=== PATIENT | male | born 1980 | race Hispanic/Latino ===

== ENCOUNTER 2018-06-04 02:36 | Observation (INO) | payer MEDICAID, OTHER ==
[2018-06-04] MEDS ORDERED: Sodium Chloride 0.9% 1,000 ML IV STA ×2 (03:00→05:48)
--- NOTE | 2018-06-04 03:03 | ED PDOC ---
Arrival/HPI - General Chief Complaint: Back Pain Time Seen by Provider: 06/04/18 02:55 Historian: Patient - History of Present Illness Narrative History of Present Illness (Text): 06/04/18 03:00 Errol Cannon is a 38 year old male, whose past medical history includes nephrolithiasis, who presents to the ED complaining of right flank pain tonight. Patient notes symptoms are similar in quality to previous episodes of kidney stones. Patient denies any fever, chills, chest pain, shortness of breath, nausea, vomiting, diarrhea, urinary symptoms, neck pain, headache, dizziness, or any other complaints. Symptom Onset: Gradual Symptom Course: Unchanged Activities at Onset: Light Context: Home Past Medical History - Provider Review Nursing Documentation Reviewed: Yes - Infectious Disease Hx of Infectious Diseases: None - Cardiac Hx Cardiac Disorders: No - Pulmonary Hx Respiratory Disorders: No - Renal Hx Kidney Stones: Yes - Psychiatric Hx Substance Use: Yes (marijuana) Family/Social History - Physician Review Nursing Documentation Reviewed: Yes Family/Social History: Unknown Family HX Smoking Status: Heavy Smoker > 10 Cigarettes Daily Hx Alcohol Use: Yes Frequency of alcohol use: Socially Hx Substance Use: Yes (marijuana) Allergies/Home Meds Allergies/Adverse Reactions: Allergies No Known Allergies Allergy (Verified 06/04/18 02:42) Home Medications: Home Meds Medication Instructions Recorded Confirmed No Known Home Med 06/04/18 06/04/18 Review of Systems - Physician Review All systems were reviewed & negative as marked: Yes - Review of Systems Constitutional: Normal. absent: Fevers Eyes: Normal ENT: Normal Respiratory: Normal. absent: SOB, Cough Cardiovascular: Normal. absent: Chest Pain Gastrointestinal: Normal. absent: Abdominal Pain, Diarrhea, Nausea, Vomiting Genitourinary Male: Normal. absent: Dysuria, Hematuria, Urinary Output Changes Musculoskeletal: Back Pain. absent: Neck Pain Skin: Normal. absent: Rash Neurological: Normal. absent: Headache, Dizziness Endocrine: Normal Hemo/Lymphatic: Normal Psychiatric: Normal Physical Exam Vital Signs Reviewed: Yes Vital Signs Temp Pulse Resp BP Pulse Ox 06/04/18 02:42 98.1 F 88 18 101/70 98 Temperature: Afebrile Blood Pressure: Normal Pulse: Regular Respiratory Rate: Normal Appearance: Positive for: Well-Appearing, Non-Toxic, Comfortable Pain Distress: None Mental Status: Positive for: Alert and Oriented X 3 - Systems Exam Head: Present: Atraumatic, Normocephalic Pupils: Present: PERRL Extroacular Muscles: Present: EOMI Conjunctiva: Present: Normal Mouth: Present: Moist Mucous Membranes Neck: Present: Normal Range of Motion Respiratory/Chest: Present: Clear to Auscultation, Good Air Exchange. No: Respiratory Distress, Accessory Muscle Use Cardiovascular: Present: Regular Rate and Rhythm, Normal S1, S2. No: Murmurs Abdomen: No: Tenderness, Distention, Peritoneal Signs Back: Present: Normal Inspection Upper Extremity: Present: Normal Inspection. No: Cyanosis, Edema Lower Extremity: Present: Normal Inspection. No: Edema Neurological: Present: GCS=15, CN II-XII Intact, Speech Normal Skin: Present: Warm, Dry, Normal Color. No: Rashes Psychiatric: Present: Alert, Oriented x 3, Normal Insight, Normal Concentration Medical Decision Making ED Course and Treatment: 06/04/18 03:00 Impression: 38 year old male complaining of right flank pain tonight. Plan: -- CT Abdomen and Pelvis -- Labs -- Urinalysis -- IV fluids -- Zofran -- Toradol -- Reassess and disposition Progress Notes: 06/04/18 04:42 CT Abdomen and Pelvis: Normal unenhanced liver. Normal gallbladder and extrahepatic biliary system. Normal unenhanced spleen. Normal pancreas. Normal bilateral adrenal glands. Normal size of the right kidney. There is no right renal mass. There are no right renal calculi. 4.7 mm obstructing stone of the left ureter at the L5 level. Mild right hydroureter nephrosis. Normal size of the left kidney. There is no left renal mass. There are no left renal calculi. There is no left hydronephrosis. Normal visualized left ureter. Normal visualized stomach. Normal small intestine. Moderate amount of fecal residue in the colon. The appendix is visualized and appears normal. There is no demonstrated peritoneal fluid. Normal abdominal aorta. Normal inferior vena cava. Normal retroperitoneum. Normal urinary bladder. There is no pelvic mass lesion or lymphadenopathy. There is no pelvic fluid. Normal abdominal wall. Normal osseous structures. IMPRESSION: Obstructing stone of the right ureter at L5. Constipation. Electronically signed on Jun 04, 2018 4:34:55 AM EDT by: Jose Alfredo Rivera M.D., Certified by ABNER, MSK, Neuroradiology 06/04/18 04:46 Case discussed with biomedical repair technician road design draftsperson, who is aware and agrees with plan. 06/04/18 05:[address] Cartagena, who is aware and agrees with plan. Accepts pt in to hospitalist service. Pt will go to [facility] observation for renal colic. - Lab Interpretations I have reviewed the lab results: Yes - RAD Interpretation Sales Architect: Radiologist - Scribe Statement The provider has reviewed the documentation as recorded by the Carlosiblopez Swift Provider Scribe Attestation: All medical record entries made by the Scribe were at my direction and personally dictated by me. I have reviewed the chart and agree that the record accurately reflects my personal performance of the history, physical exam, medical decision making, and the department course for this patient. I have also personally directed, reviewed, and agree with the discharge instructions and disposition. Disposition/Present on Arrival - Present on Arrival History of DVT/PE: No History of Uncontrolled Diabetes: No Urinary Catheter: No History of Decub. Ulcer: No History Surgical Site Infection Following: None - Disposition Forms: [email or web address] (Pashto)
[2018-06-04 03:23] LABS: BASO # 0.03 K/mm3 (0.0-2.0); BASO % 0.3 % (0.0-3.0); EOS # 0.1 (0.0-0.7); EOS % 0.8 % (1.5-5.0); LYMPH # 2.8 (1.2-3.4); LYMPH % 27.1 % (22.0-35.0); MEAN CELL VOLUME 84.5 fl (80.0-105.0); MEAN CORPUSCULAR HEMOGLOBIN 28.9 pg (25.0-35.0); MEAN CORPUSCULAR HGB CONC 34.1 g/dl (31.0-37.0); MEAN PLATELET VOLUME 10.1 fl (7.0-11.0); MONO # 0.7 (0.1-0.6); MONO % 6.5 % (1.0-6.0); RBC 4.85 10^6/uL (3.5-6.1); RED CELL DISTRIBUTION WIDTH 13.5 % (11.5-14.5); WHITE BLOOD COUNT 10.4 10^3/uL (4.5-11.0)
[2018-06-04 03:24] LABS: PH,URINE 6.5 (4.7-8.0); URINE BILIRUBIN NEGATIVE (NEGATIVE); URINE BLOOD NEGATIVE (NEGATIVE); URINE GLUCOSE (UA) NEGATIVE (NEGATIVE); URINE LEUKOCYTE ESTERASE TRACE Leu/uL (NEGATIVE); URINE PROTEIN 30 mg/dL (<30 mg/dL)
[2018-06-04 03:25] LABS: URINE APPEARANCE CLEAR (CLEAR); URINE COLOR LIGHT YELLOW (YELLOW)
[2018-06-04 03:28] LABS: URINE RBC 0 - 2 /hpf (0-2)
[2018-06-04 03:33] LABS: ALB/GLOB RATIO 1.5 (1.1-1.8); ALBUMIN 4.3 g/dL (3.0-4.8); ALT/SGPT 12 U/L (7-56); AST/SGOT 28 U/L (17-59); BLOOD UREA NITROGEN 10 mg/dL (7-21); CALCIUM 9.5 mg/dL (8.4-10.5); GFR NON-AFRICAN AMERICAN > 60
[2018-06-04] MEDS ORDERED: Morphine 2 mg/ml ISec IVP STA (03:54)
[2018-06-04 04:50] VITALS: O2SAT 97
--- NOTE | 2018-06-04 05:31 | CP.PCM.HP ---
<AnastacioGuru - Last Filed: 06/04/18 06:00> History of Present Illness - History of Present Illness History of Present Illness: Guru Chaves DO PGY-1 H&P Note for Dr. Mitzi Rush: Right flank pain x6 days 38 y/o male with PMH of nephrolithiasis presents to the ED with right flank pain x6 days. Pain is sharp, 10/10, no radiation, progressive, no radiation, associated with hematuria. Patient denied fever, chills, nausea, vomiting or trauma related to his symptoms. He states he had significant history of nephrolithiasis with subsequent ureteric stent placed 7 years ago. He had stones that passed on their own. Patient denied chest pain, palpitations, cough, headache, dizziness, N/V, 12 points ROS reviewed with pertinent positives as above PMH:nephrolithiasis PSH: ureteric stent 7 years ago Meds: none All: NKDA FH: father, HTN. Mother of cancer SH: smokes 1/2 ppd x15 years. no alcohol or illicit drug use PMD: none Present on Admission - Present on Admission Any Indicators Present on Admission: No Past Patient History - Infectious Disease Hx of Infectious Diseases: None - Past Social History Smoking Status: Heavy Smoker > 10 Cigarettes Daily - CARDIAC Hx Cardiac Disorders: No - PULMONARY Hx Respiratory Disorders: No - RENAL Hx Kidney Stones: Yes - PSYCHIATRIC Hx Substance Use: Yes (marijuana) Meds Allergies/Adverse Reactions: Allergies Allergy/AdvReac Type Severity Reaction Status Date / Time No Known Allergies Allergy Verified 06/04/18 02:42 Physical Exam - Constitutional Appears: Well, Non-toxic - Head Exam Head Exam: ATRAUMATIC, NORMAL INSPECTION, NORMOCEPHALIC - Eye Exam Eye Exam: EOMI, Normal appearance, PERRL Pupil Exam: NORMAL ACCOMODATION, PERRL - ENT Exam ENT Exam: Mucous Membranes Moist, Normal Exam - Neck Exam Neck exam: Positive for: Normal Inspection - Respiratory Exam Respiratory Exam: Clear to Auscultation Bilateral, NORMAL BREATHING PATTERN - Cardiovascular Exam Cardiovascular Exam: REGULAR RHYTHM - GI/Abdominal Exam GI & Abdominal Exam: Normal Bowel Sounds, Soft. absent: Tenderness - Extremities Exam Extremities exam: Positive for: normal capillary refill, normal inspection. Negative for: calf tenderness - Back Exam Back exam: CVA tenderness (R), NORMAL INSPECTION. absent: CVA tenderness (L) - Neurological Exam Neurological exam: Alert, CN II-XII Intact, Normal Gait, Oriented x3, Reflexes Normal - Psychiatric Exam Psychiatric exam: Normal Affect, Normal Mood - Skin Skin Exam: Dry, Intact, Normal Color, Warm Results - Vital Signs Recent Vital Signs: Last Vital Signs Temp 98.1 F 06/04/18 02:42 Pulse 70 06/04/18 04:49 Resp 14 06/04/18 04:49 BP 102/60 06/04/18 04:49 Pulse Ox 97 06/04/18 04:49 - Labs Result Diagrams: 06/04/18 03:06 06/04/18 03:06 Labs: Laboratory Results - last 24 hr 06/04/18 06/04/18 06/04/18 03:06 03:06 03:06 WBC 10.4 RBC 4.85 Hgb 14.0 Hct 41.0 L MCV 84.5 MCH 28.9 MCHC 34.1 RDW 13.5 Plt Count 294 MPV 10.1 Neut % (Auto) 65.3 Lymph % (Auto) 27.1 [place] % (Auto) 6.5 H Eos % (Auto) 0.8 L Baso % (Auto) 0.3 Lymph # (Auto) 2.8 [place] # (Auto) 0.7 H Eos # (Auto) 0.1 Baso # (Auto) 0.03 Absolute Neuts (auto) 6.82 H Sodium 140 Potassium 3.6 Chloride 103 Carbon Dioxide 28 Anion Gap 13 BUN 10 Creatinine 0.8 Est GFR ( Amer) > 60 Est GFR (Non-Af Amer) > 60 Random Glucose 116 H Calcium 9.5 Total Bilirubin 0.5 AST 28 ALT 12 Alkaline Phosphatase 86 Total Protein 7.1 Albumin 4.3 Globulin 2.8 Albumin/Globulin Ratio 1.5 Urine Color Light yellow Urine Appearance Clear Urine pH 6.5 Ur Specific [place] 1.025 Urine Protein 30 H Urine Glucose (UA) Negative Urine Ketones Trace H Urine Blood Negative Urine Nitrate Negative Urine Bilirubin Negative Urine Urobilinogen 1.0 H Ur Leukocyte Esterase Trace H Urine RBC 0 - 2 Urine WBC 2 - 5 Ur Epithelial Cells None Urine Other Mucus Assessment & Plan - Assessment and Plan (Free Text) Assessment: 38 y/o male with PMH of nephrolithiasis presents to the ED with right flank pain x6 days. He is admitted for obstructive right ureteric stone 4.[address] A/P. Afebrile, no leukocytosis. Plan: Obstructive ureteric stone: -CT A/P: 4.7 mm right ureteric stone at level of L5 per prelim read given to ER physician -IVF NS@200 cc/hr -morphine 2mg q4h prn moderate pain and 4mg q4 prn severe -UA: +LE, proteinurea -f/u UCx -started rocephin -urology consulted, Dr Sultana h/o smoking: -nicotine patch PPX: DVT: SCD GI: not indicated HHD Case reviewed and plan discussed with attending Dr Mitzi Chaves, DO PGY1 <Anna Marie Cartagena - Last Filed: 06/04/18 07:19> Results - Vital Signs Recent Vital Signs: Last Vital Signs Temp 98.1 F 06/04/18 02:42 Pulse 70 06/04/18 05:47 Resp 14 06/04/18 05:47 BP 102/60 06/04/18 05:47 Pulse Ox 97 06/04/18 05:47 - Labs Result Diagrams: 06/04/18 03:06 06/04/18 03:06 Labs: Laboratory Results - last 24 hr 06/04/18 06/04/18 06/04/18 03:06 03:06 03:06 WBC 10.4 RBC 4.85 Hgb 14.0 Hct 41.0 L MCV 84.5 MCH 28.9 MCHC 34.1 RDW 13.5 Plt Count 294 MPV 10.1 Neut % (Auto) 65.3 Lymph % (Auto) 27.1 [place] % (Auto) 6.5 H Eos % (Auto) 0.8 L Baso % (Auto) 0.3 Lymph # (Auto) 2.8 [place] # (Auto) 0.7 H Eos # (Auto) 0.1 Baso # (Auto) 0.03 Absolute Neuts (auto) 6.82 H Sodium 140 Potassium 3.6 Chloride 103 Carbon Dioxide 28 Anion Gap 13 BUN 10 Creatinine 0.8 Est GFR ( Amer) > 60 Est GFR (Non-Af Amer) > 60 Random Glucose 116 H Calcium 9.5 Total Bilirubin 0.5 AST 28 ALT 12 Alkaline Phosphatase 86 Total Protein 7.1 Albumin 4.3 Globulin 2.8 Albumin/Globulin Ratio 1.5 Urine Color Light yellow Urine Appearance Clear Urine pH 6.5 Ur Specific [place] 1.025 Urine Protein 30 H Urine Glucose (UA) Negative Urine Ketones Trace H Urine Blood Negative Urine Nitrate Negative Urine Bilirubin Negative Urine Urobilinogen 1.0 H Ur Leukocyte Esterase Trace H Urine RBC 0 - 2 Urine WBC 2 - 5 Ur Epithelial Cells None Urine Other Mucus Attending/Attestation - Attestation I have personally seen and examined this patient.: Yes I have fully participated in the care of the patient.: Yes I have reviewed all pertinent clinical information: Yes Notes (Text): 06/04/18 07:16 Patient evaluated Discussed with resident in detail Agree with documentation,assessment and plan of treatment. 06/04/18 07:18
[2018-06-04] MEDS ORDERED: Morphine 2 mg/ml ISec IVP PRN ×3 (05:56→07:28)
[2018-06-04] MEDS ORDERED: Morphine 4 mg/ml ISec IVP PRN (06:03)
[2018-06-04 08:54] VITALS: BP 127/65; PULSE 66; RESP 18; TEMP 97.9
--- NOTE | 2018-06-04 09:34 | CT ---
PROCEDURE: CT Abdomen and Pelvis without Oral or IV contrast. HISTORY: rt flank pain COMPARISON: None available. TECHNIQUE: Contiguous axial images of the abdomen and pelvis. No oral or IV contrast administered. Coronal and Sagittal reformats generated and reviewed. Radiation dose: Total exam DLP = 277.58 mGy-cm. This CT exam was performed using one or more of the following dose reduction techniques: Automated exposure control, adjustment of the mA and/or kV according to patient size, and/or use of iterative reconstruction technique. FINDINGS: There is limited evaluation of the solid organs without the administration of IV contrast. LOWER THORAX: No visible consolidation, pleural effusion, or pneumothorax. LIVER: Unremarkable unenhanced appearance. GALLBLADDER AND BILE DUCTS: Unremarkable unenhanced appearance. PANCREAS: Unremarkable unenhanced appearance. SPLEEN: Unremarkable unenhanced appearance. ADRENALS: Unremarkable unenhanced appearance. KIDNEYS AND URETERS: 4 mm obstructing calculus within the ureter (series 3, image 79); mild proximal hydroureter and hydronephrosis. No left-sided obstructing calculus or hydronephrosis identified. BLADDER: Under distension limits evaluation. REPRODUCTIVE: Unremarkable. APPENDIX: The appendix appears within normal limits of caliber. No secondary signs of acute appendicitis. BOWEL: The stomach is nondistended. Lack of oral contrast limits evaluation for bowel pathology. The bowel loops appear within normal limits of caliber without evidence of intestinal obstruction. Moderate diffuse constipation. PERITONEUM: No significant free fluid. No definite free air. LYMPH NODES: No bulky lymphadenopathy identified. VASCULATURE: Scattered atherosclerotic calcifications of the aorta. No aortic aneurysm. BONES: No acute osseous abnormality is detected. OTHER FINDINGS: None. IMPRESSION: 4 mm obstructing calculus within the right ureter with resultant mild proximal hydroureter and hydronephrosis. Moderate constipation. Scattered atherosclerotic calcifications of the aorta. Preliminary impression was provided by [employer]
[2018-06-04] MEDS ORDERED: cefTRIAXone 1 gm 1 GM/100 ML BAG IVPB SCH (10:00)
--- NOTE | 2018-06-04 15:15 | CP.PCM.DIS ---
<Jj Garcia - Last Filed: 06/04/18 15:00> Provider - Provider Date of Admission: 06/04/18 05:07 Attending physician: Angelina Swartz MD Consults: 06/04/18 05:46 Physician Consult Routine Comment: Consulting Provider: Shar Sultana Consulting Physician: Shar Sultana Reason for Consult: obstructive right ureteric stone Time Spent in preparation of Discharge (in minutes): 40 Diagnosis - Discharge Diagnosis (1) Nephrolithiasis Status: Acute Hospital Course - Lab Results Lab Results: Most Recent Lab Values WBC 10.4 10^3/uL (4.5-11.0) 06/04/18 03:06 RBC 4.85 10^6/uL (3.5-6.1) 06/04/18 03:06 Hgb 14.0 g/dL (14.0-18.0) 06/04/18 03:06 Hct 41.0 % (42.0-52.0) L 06/04/18 03:06 MCV 84.5 fl (80.0-105.0) 06/04/18 03:06 MCH 28.9 pg (25.0-35.0) 06/04/18 03:06 MCHC 34.1 g/dl (31.0-37.0) 06/04/18 03:06 RDW 13.5 % (11.5-14.5) 06/04/18 03:06 Plt Count 294 10^3/uL (120.0-450.0) 06/04/18 03:06 MPV 10.1 fl (7.0-11.0) 06/04/18 03:06 Neut % (Auto) 65.3 % (50.0-68.0) 06/04/18 03:06 Lymph % (Auto) 27.1 % (22.0-35.0) 06/04/18 03:06 [place] % (Auto) 6.5 % (1.0-6.0) H 06/04/18 03:06 Eos % (Auto) 0.8 % (1.5-5.0) L 06/04/18 03:06 Baso % (Auto) 0.3 % (0.0-3.0) 06/04/18 03:06 Lymph # (Auto) 2.8 (1.2-3.4) 06/04/18 03:06 [place] # (Auto) 0.7 (0.1-0.6) H 06/04/18 03:06 Eos # (Auto) 0.1 (0.0-0.7) 06/04/18 03:06 Baso # (Auto) 0.03 K/mm3 (0.0-2.0) 06/04/18 03:06 Absolute Neuts (auto) 6.82 (1.4-6.5) H 06/04/18 03:06 Sodium 140 mmol/L (132-148) 06/04/18 03:06 Potassium 3.6 mmol/L (3.6-5.0) 06/04/18 03:06 Chloride 103 mmol/L (98-107) 06/04/18 03:06 Carbon Dioxide 28 mmol/L (21-33) 06/04/18 03:06 Anion Gap 13 (10-20) 06/04/18 03:06 BUN 10 mg/dL (7-21) 06/04/18 03:06 Creatinine 0.8 mg/dl (0.8-1.5) 06/04/18 03:06 Est GFR ( Amer) > 60 06/04/18 03:06 Est GFR (Non-Af Amer) > 60 06/04/18 03:06 Random Glucose 116 mg/dL (70-110) H 06/04/18 03:06 Calcium 9.5 mg/dL (8.4-10.5) 06/04/18 03:06 Phosphorus 3.2 mg/dL (2.5-4.5) 06/04/18 03:06 Magnesium 1.7 mg/dL (1.7-2.2) 06/04/18 03:06 Total Bilirubin 0.5 mg/dL (0.2-1.3) 06/04/18 03:06 AST 28 U/L (17-59) 06/04/18 03:06 ALT 12 U/L (7-56) 06/04/18 03:06 Alkaline Phosphatase 86 U/L (38-126) 06/04/18 03:06 Total Protein 7.1 g/dL (5.8-8.3) 06/04/18 03:06 Albumin 4.3 g/dL (3.0-4.8) 06/04/18 03:06 Globulin 2.8 gm/dL 06/04/18 03:06 Albumin/Globulin Ratio 1.5 (1.1-1.8) 06/04/18 03:06 Urine Color Light yellow (YELLOW) 06/04/18 03:06 Urine Appearance Clear (CLEAR) 06/04/18 03:06 Urine pH 6.5 (4.7-8.0) 06/04/18 03:06 Ur Specific [place] 1.025 (1.005-1.035) 06/04/18 03:06 Urine Protein 30 mg/dL (<30 mg/dL) H 06/04/18 03:06 Urine Glucose (UA) Negative mg/dL (NEGATIVE) 06/04/18 03:06 Urine Ketones Trace mg/dL (NEGATIVE) H 06/04/18 03:06 Urine Blood Negative (NEGATIVE) 06/04/18 03:06 Urine Nitrate Negative (NEGATIVE) 06/04/18 03:06 Urine Bilirubin Negative (NEGATIVE) 06/04/18 03:06 Urine Urobilinogen 1.0 E.U./dL (<1 E.U./dL) H 06/04/18 03:06 Ur Leukocyte Esterase Trace [place]/uL (NEGATIVE) H 06/04/18 03:06 Urine RBC 0 - 2 /hpf (0-2) 06/04/18 03:06 Urine WBC 2 - 5 /hpf (0-6) 06/04/18 03:06 Ur Epithelial Cells None /hpf (0-5) 06/04/18 03:06 Urine Other Mucus /hpf 06/04/18 03:06 - Hospital Course Hospital Course: Patient is a 38 y/o male with PMH of nephrolithiasis presented to the ED with right flank pain x6 days. Patient has a significant history of nephrolithiasis with subsequent ureteric stent placed 7 years ago and removed 2 weeks after. He had stones that passed on their own previously. Patient states he believes he was told that the stones in the past were calcium based. CT of the abdomen/pelvis showed obstructing 4.7 mm right ureteric stone without hydronephrosis. Urology was consulted and stated that patient can be discharged with outpatient followup. Patient states that pain had improved and is urinating well with Flomax. As patient is hemodynamically stable and cleared by all cons ultants he was discharged. Patient was instructed to follow up with Dr. Sultana in his clinic for further management. Patient was also instructed to follow up with [facility] for his appointment on Friday 06/09 at 3 pm. Patient was given rx for Flomax and Percocet. Discharge Exam - Head Exam Head Exam: ATRAUMATIC, NORMAL INSPECTION, NORMOCEPHALIC - Eye Exam Eye Exam: Normal appearance - ENT Exam ENT Exam: Mucous Membranes Moist - Cardiovascular Exam Cardiovascular Exam: REGULAR RHYTHM, +S1, +S2. absent: Diastolic murmur, Gallop, Rubs, Systolic Murmur - GI/Abdominal Exam GI & Abdominal Exam: Soft. absent: Distended, Guarding, Rebound, Tenderness - Extremities Exam Extremities exam: normal capillary refill - Back Exam Back exam: CVA tenderness (R) (mild). absent: CVA tenderness (L) - Neurological Exam Neurological exam: Alert, Oriented x3 - Psychiatric Exam Psychiatric exam: Normal Affect, Normal Mood - Skin Skin Exam: Dry, Intact, Normal Color, Warm Discharge Plan - Discharge Medications Prescriptions: oxyCODONE/Acetaminophen [Percocet 5/325 mg Tab] 1 tab PO Q8 PRN #6 tab PRN Reason: Pain, Severe (8-10) Tamsulosin [Flomax] 0.4 mg PO DAILY #14 cap - Follow Up Plan Condition: GOOD Disposition: HOME/ ROUTINE Instructions: Kidney Stones in Adults, Kidney Stones (DC) Additional Instructions: - Follow up with the [facility] (ground floor of hospital) on 06/09 at 3 pm - Follow up with Dr. Sultana, Urologist, within 3-5 days - Take medications as prescribed - Recommend straining urine for confirmation of stone passing - May use percocet as needed for pain - Return to ED if symptoms return Referrals: [facility] at [facility] [place] [Outside] Shar Sultana MD [Staff Provider] - <Angelina Swartz - Last Filed: 06/04/18 16:07> Provider - Provider Date of Admission: 06/04/18 05:07 Attending physician: Angelina Swartz MD Consults: 06/04/18 05:46 Physician Consult Routine Comment: Consulting Provider: Shar Sultana Consulting Physician: Shar Sultana Reason for Consult: obstructive right ureteric stone Hospital Course - Lab Results Lab Results: Most Recent Lab Values WBC 10.4 10^3/uL (4.5-11.0) 06/04/18 03:06 RBC 4.85 10^6/uL (3.5-6.1) 06/04/18 03:06 Hgb 14.0 g/dL (14.0-18.0) 06/04/18 03:06 Hct 41.0 % (42.0-52.0) L 06/04/18 03:06 MCV 84.5 fl (80.0-105.0) 06/04/18 03:06 MCH 28.9 pg (25.0-35.0) 06/04/18 03:06 MCHC 34.1 g/dl (31.0-37.0) 06/04/18 03:06 RDW 13.5 % (11.5-14.5) 06/04/18 03:06 Plt Count 294 10^3/uL (120.0-450.0) 06/04/18 03:06 MPV 10.1 fl (7.0-11.0) 06/04/18 03:06 Neut % (Auto) 65.3 % (50.0-68.0) 06/04/18 03:06 Lymph % (Auto) 27.1 % (22.0-35.0) 06/04/18 03:06 [place] % (Auto) 6.5 % (1.0-6.0) H 06/04/18 03:06 Eos % (Auto) 0.8 % (1.5-5.0) L 06/04/18 03:06 Baso % (Auto) 0.3 % (0.0-3.0) 06/04/18 03:06 Lymph # (Auto) 2.8 (1.2-3.4) 06/04/18 03:06 [place] # (Auto) 0.7 (0.1-0.6) H 06/04/18 03:06 Eos # (Auto) 0.1 (0.0-0.7) 06/04/18 03:06 Baso # (Auto) 0.03 K/mm3 (0.0-2.0) 06/04/18 03:06 Absolute Neuts (auto) 6.82 (1.4-6.5) H 06/04/18 03:06 Sodium 140 mmol/L (132-148) 06/04/18 03:06 Potassium 3.6 mmol/L (3.6-5.0) 06/04/18 03:06 Chloride 103 mmol/L (98-107) 06/04/18 03:06 Carbon Dioxide 28 mmol/L (21-33) 06/04/18 03:06 Anion Gap 13 (10-20) 06/04/18 03:06 BUN 10 mg/dL (7-21) 06/04/18 03:06 Creatinine 0.8 mg/dl (0.8-1.5) 06/04/18 03:06 Est GFR ( Amer) > 60 06/04/18 03:06 Est GFR (Non-Af Amer) > 60 06/04/18 03:06 Random Glucose 116 mg/dL (70-110) H 06/04/18 03:06 Calcium 9.5 mg/dL (8.4-10.5) 06/04/18 03:06 Phosphorus 3.2 mg/dL (2.5-4.5) 06/04/18 03:06 Magnesium 1.7 mg/dL (1.7-2.2) 06/04/18 03:06 Total Bilirubin 0.5 mg/dL (0.2-1.3) 06/04/18 03:06 AST 28 U/L (17-59) 06/04/18 03:06 ALT 12 U/L (7-56) 06/04/18 03:06 Alkaline Phosphatase 86 U/L (38-126) 06/04/18 03:06 Total Protein 7.1 g/dL (5.8-8.3) 06/04/18 03:06 Albumin 4.3 g/dL (3.0-4.8) 06/04/18 03:06 Globulin 2.8 gm/dL 06/04/18 03:06 Albumin/Globulin Ratio 1.5 (1.1-1.8) 06/04/18 03:06 Urine Color Light yellow (YELLOW) 06/04/18 03:06 Urine Appearance Clear (CLEAR) 06/04/18 03:06 Urine pH 6.5 (4.7-8.0) 06/04/18 03:06 Ur Specific [place] 1.025 (1.005-1.035) 06/04/18 03:06 Urine Protein 30 mg/dL (<30 mg/dL) H 06/04/18 03:06 Urine Glucose (UA) Negative mg/dL (NEGATIVE) 06/04/18 03:06 Urine Ketones Trace mg/dL (NEGATIVE) H 06/04/18 03:06 Urine Blood Negative (NEGATIVE) 06/04/18 03:06 Urine Nitrate Negative (NEGATIVE) 06/04/18 03:06 Urine Bilirubin Negative (NEGATIVE) 06/04/18 03:06 Urine Urobilinogen 1.0 E.U./dL (<1 E.U./dL) H 06/04/18 03:06 Ur Leukocyte Esterase Trace [place]/uL (NEGATIVE) H 06/04/18 03:06 Urine RBC 0 - 2 /hpf (0-2) 06/04/18 03:06 Urine WBC 2 - 5 /hpf (0-6) 06/04/18 03:06 Ur Epithelial Cells None /hpf (0-5) 06/04/18 03:06 Urine Other Mucus /hpf 06/04/18 03:06 Attending/Attestation - Attestation I have personally seen and examined this patient.: Yes I have fully participated in the care of the patient.: Yes I have reviewed all pertinent clinical information, including history, physical exam and plan: Yes Notes (Text): 06/04/18 16:01 38 year old male with past medical history of nephrolithiasis who presented with right sided flank pain. He had CT abd/pelvis which showed 4.7 mm right ureteric stone with mild proximal hydroureter and hydronephrosis. He was admitted and started on flomax and analgesics. His symptoms improved. Case discussed with urology who cleared patient for discharge with outpatient follow up. Patient is discharged home to follow up at [facility]. Follow up with urology, Dr. Sultana, this week. Started on flomax. Percocet prn for pain. Instructed can take colace prn for constipation. Angelina Swartz MD Hospitalist.
== END 2018-06-04 18:15 | disposition home or self-care (01) ==
LOC: ED 02:36 → ERH 05:07 → 3RNO 06:15
PROVIDERS: ADMIT Hospitalist; ATTEND Internal Medicine
DX: N13.2 Hydronephrosis with renal and ureteral calculous obstruction (principal); F17.210 Nicotine dependence, cigarettes, uncomplicated; K59.00 Constipation, unspecified; Z80.9 Family history of malignant neoplasm, unspecified; Z82.49 Family history of ischemic heart disease and other diseases of the circulatory system
CPT/HCPCS: 36415; 74176; 80053; 81001; 83735; 84100; 85025; 87086; 96365; 96375; 96376; 99284; G0378; J0696; J1885; J2270; J2405; J7030

== ENCOUNTER 2018-06-06 03:17 | Observation (INO) | payer MEDICAID ==
[2018-06-06 03:28] VITALS: BMI 23.7
[2018-06-06] MEDS ORDERED: Morphine 4 mg/ml ISec IVP STA (03:41)
[2018-06-06] MEDS ORDERED: Sodium Chloride 0.9% 1,000 ML IV STA ×3 (03:41→05:42)
--- NOTE | 2018-06-06 04:14 | ED PDOC ---
Arrival/HPI - General Chief Complaint: Male Genitourinary Time Seen by Provider: 06/06/18 03:37 Historian: Patient - History of Present Illness Narrative History of Present Illness (Text): 06/06/18 04:14 38 year old male, whose past medical history includes recently diagnosed kidney stone, presents to the emergency department with recurrent pain, nausea, vomiting. Patient informs he was seen here 2 days prior and diagnosed with a kidney stone on CT. Patient was treated and released on pain meds. Patient states he is still with recurrent pain, requiring him to return to the ER. Patient denies any fevers, chills, chest pain, shortness of breath, neck pain, headache, dizziness, or any other complaint. Time/Duration: Prior to Arrival, < week Symptom Onset: Gradual Symptom Course: Unchanged, Worsening Quality: Stabbing Activities at Onset: Light Context: Home Past Medical History - Provider Review Nursing Documentation Reviewed: Yes - Infectious Disease Hx of Infectious Diseases: None - Cardiac Hx Cardiac Disorders: No - Pulmonary Hx Respiratory Disorders: No - Neurological Hx Neurological Disorder: No - HEENT Hx HEENT Disorder: No - Renal Hx Renal Disorder: Yes Hx Kidney Stones: Yes Other/Comment: stent placed in [place] 7 years ago, stent removal 2 and 1/2 years ago. - Endocrine/Metabolic Hx Endocrine Disorders: No - Hematological/Oncological Hx Blood Disorders: No - Integumentary Hx Dermatological Disorder: No - Musculoskeletal/Rheumatological Hx Musculoskeletal Disorders: No - Gastrointestinal Hx Gastrointestinal Disorders: No - Genitourinary/Gynecological Hx Genitourinary Disorders: No - Psychiatric Hx Psychophysiologic Disorder: No Hx Substance Use: Yes (marijuana) Family/Social History - Physician Review Nursing Documentation Reviewed: Yes Family/Social History: No Known Family HX Smoking Status: Heavy Smoker > 10 Cigarettes Daily Hx Alcohol Use: Yes Hx Substance Use: Yes (marijuana) Allergies/Home Meds Allergies/Adverse Reactions: Allergies No Known Allergies Allergy (Verified 06/04/18 02:42) Review of Systems - Physician Review All systems were reviewed & negative as marked: Yes - Review of Systems Constitutional: absent: Fevers, Night Sweats Respiratory: absent: SOB Cardiovascular: absent: Chest Pain Gastrointestinal: Nausea, Vomiting Musculoskeletal: absent: Neck Pain Neurological: absent: Headache, Dizziness Physical Exam Vital Signs Reviewed: Yes Vital Signs Temp Pulse Resp BP Pulse Ox 04/26/19 03:26 97.8 F 69 18 131/91 H 100 Temperature: Afebrile Blood Pressure: Hypertensive Pulse: Regular Respiratory Rate: Normal Appearance: Positive for: Well-Appearing, Non-Toxic, Comfortable Pain Distress: Mild Mental Status: Positive for: Alert and Oriented X 3 - Systems Exam Head: Present: Atraumatic, Normocephalic Pupils: Present: PERRL Extroacular Muscles: Present: EOMI Conjunctiva: Present: Normal Mouth: Present: Moist Mucous Membranes Neck: Present: Normal Range of Motion Respiratory/Chest: Present: Clear to Auscultation, Good Air Exchange. No: Respiratory Distress, Accessory Muscle Use Cardiovascular: Present: Regular Rate and Rhythm, Normal S1, S2. No: Murmurs Abdomen: No: Tenderness, Distention, Peritoneal Signs Back: Present: CVA Tenderness (Right CVA tenderness) Upper Extremity: Present: Normal Inspection. No: Cyanosis, Edema Lower Extremity: Present: Normal Inspection. No: Edema Neurological: Present: GCS=15, CN II-XII Intact, Speech Normal Skin: Present: Warm, Dry, Normal Color. No: Rashes Psychiatric: Present: Alert, Oriented x 3, Normal Insight, Normal Concentration Medical Decision Making ED Course and Treatment: 06/06/18 04:19 Impression: 38 year old male presents with kidney stone. Plan: -- CMP -- CBC -- Morphine -- Zofran -- Urinalysis -- Reassess and disposition Prior Visits: Notes and results from previous visits were reviewed. CT from 06/04/18 shows a 4mm obstructing calculus. Progress Notes: 06/06/18 04:20 Case discussed with pesticide use medical coordinator and Dr Hussein who accepts admission. - EKG Interpretation EKG Interpretation (Text): 06/06/18 05:26 EKG- NSR @69,No acute changes Interpreted by ED Physician: Yes Type: 12 lead EKG - Medication Orders Current Medication Orders: Sodium Chloride (Sodium Chloride 0.9%) 1,000 mls @ 999 mls/hr IV .Q1H1M STA Stop: 06/06/18 04:41 Last Admin: 06/06/18 04:06 Dose: 999 mls/hr eMAR Start Stop Document 06/06/18 04:06 KV (Rec: 06/06/18 04:08 KV [id number]) Intravenous Solution Start Date 06/06/18 Start Time 04:06 Discontinued Medications Morphine Sulfate (Morphine) 4 mg IVP STAT STA Stop: 06/06/18 03:42 Last Admin: 06/06/18 04:06 Dose: 4 mg MAR Pain Assessment Document 06/06/18 04:06 KV (Rec: 06/06/18 04:09 KV [id number]) Pain Reassessment Is this a pain reassessment? No Sleep Is patient sleeping during reassessment? No Presence of Pain Presence of Pain Yes Pain Scale Used Protocol: PSCALES Pain Scale Used Numeric Location Left, Right or Bilateral Right Upper or Lower Lower Pain Location Body Site Abdomen Back Description Description Constant Intensity of Pain at present 7 IVP Administration Document 06/06/18 04:06 KV (Rec: 06/06/18 04:09 KV [id number]) Charges for Administration # of IVP Administrations 1 Ondansetron HCl (Zofran Inj) 4 mg IVP ONCE ONE Stop: 06/06/18 03:42 Last Admin: 06/06/18 04:06 Dose: 4 mg IVP Administration Document 06/06/18 04:06 KV (Rec: 06/06/18 04:08 KV [id number]) Charges for Administration # of IVP Administrations 1 - Scribe Statement The provider has reviewed the documentation as recorded by the Carlosiblopez Terry Provider Scribe Attestation: All medical record entries made by the Scribe were at my direction and personally dictated by me. I have reviewed the chart and agree that the record accurately reflects my personal performance of the history, physical exam, medical decision making, and the department course for this patient. I have also personally directed, reviewed, and agree with the discharge instructions and disposition. Disposition/Present on Arrival - Present on Arrival Any Indicators Present on Arrival: No History of DVT/PE: No History of Uncontrolled Diabetes: No Urinary Catheter: No History of Decub. Ulcer: No History Surgical Site Infection Following: None - Disposition Have Diagnosis and Disposition been Completed?: Yes Diagnosis: Nephrolithiasis, Intractable pain Disposition: HOSPITALIZED Disposition Time: 04:23 Patient Problems: Current Active Problems Problem Status Onset Intractable pain Acute Nephrolithiasis Acute Condition: STABLE
[2018-06-06 04:30] LABS: PH,URINE >=9.0 (4.7-8.0); URINE BILIRUBIN NEGATIVE (NEGATIVE); URINE BLOOD LARGE (NEGATIVE); URINE GLUCOSE (UA) NEGATIVE (NEGATIVE); URINE LEUKOCYTE ESTERASE NEGATIVE Leu/uL (NEGATIVE); URINE PROTEIN TRACE mg/dL (<30 mg/dL); URINE UROBILINOGEN 0.2 E.U./dL (<1 E.U./dL)
[2018-06-06 04:42] LABS: MEAN CELL VOLUME 85.3 fl (80.0-105.0); MEAN CORPUSCULAR HEMOGLOBIN 28.5 pg (25.0-35.0); MEAN CORPUSCULAR HGB CONC 33.4 g/dl (31.0-37.0); MEAN PLATELET VOLUME 9.8 fl (7.0-11.0); RBC 3.54 10^6/uL (3.5-6.1); RED CELL DISTRIBUTION WIDTH 13.4 % (11.5-14.5); WHITE BLOOD COUNT 8.1 10^3/uL (4.5-11.0)
[2018-06-06 04:48] LABS: HEMOGLOBIN 10.1 g/dL (14.0-18.0)
[2018-06-06 04:49] LABS: URINE APPEARANCE SL CLOUDY (CLEAR); URINE COLOR YELLOW (YELLOW)
[2018-06-06 04:52] LABS: ALB/GLOB RATIO 1.1 (1.1-1.8); ALBUMIN 2.1 g/dL (3.0-4.8); ALT/SGPT 16 U/L (7-56); AST/SGOT 14 U/L (17-59); BLOOD UREA NITROGEN 8 mg/dL (7-21); CALCIUM 5.4 mg/dL (8.4-10.5); GFR NON-AFRICAN AMERICAN > 60
--- NOTE | 2018-06-06 04:53 | CP.PCM.HP ---
<Guru Chaves - Last Filed: 06/06/18 05:56> History of Present Illness - History of Present Illness History of Present Illness: Guru Chaves DO PGY-1 H&P Note for Dr. Jovita Rush: recurrent right flank pain x1 day 38 y/o male with PMH of nephrolithiasis presents to the ED with recurrent right flank pain today. Pain is sharp, 10/10, no radiation, progressive, associated with nausea, NBNB vomting, poor oral intake, poor urine output. Patient denied fever, chills, hematuria or trauma related to his symptoms. [place] [facility] [place] and was discharged home with percocet to follow up with urologist Dr Sultana but he did not call the doctor's office yet. He states he had significant history of nephrolithiasis with subsequent ureteric stent placed 7 years ago. Patient denied chest pain, palpitations, cough, headache, dizziness, change in bowel movement. 12 points ROS reviewed with pertinent positives as above PMH:nephrolithiasis PSH: ureteric stent 7 years ago Meds: none All: NKDA FH: father, HTN. Mother of cancer SH: smokes 1/2 ppd x15 years. no alcohol or illicit drug use PMD: none Present on Admission - Present on Admission Any Indicators Present on Admission: No Past Patient History - Infectious Disease Hx of Infectious Diseases: None - Past Social History Smoking Status: Heavy Smoker > 10 Cigarettes Daily - CARDIAC Hx Cardiac Disorders: No - PULMONARY Hx Respiratory Disorders: No - NEUROLOGICAL Hx Neurological Disorder: No - HEENT Hx HEENT Problems: No - RENAL Hx Chronic Kidney Disease: Yes Hx Kidney Stones: Yes Other/Comment: stent placed in [place] 7 years ago, stent removal 2 and 1/2 years ago. - ENDOCRINE/METABOLIC Hx Endocrine Disorders: No - HEMATOLOGICAL/ONCOLOGICAL Hx Blood Disorders: No - INTEGUMENTARY Hx Dermatological Problems: No - MUSCULOSKELETAL/RHEUMATOLOGICAL Hx Musculoskeletal Disorders: No - GASTROINTESTINAL Hx Gastrointestinal Disorders: No - GENITOURINARY/GYNECOLOGICAL Hx Genitourinary Disorders: No - PSYCHIATRIC Hx Psychophysiologic Disorder: No Hx Substance Use: Yes (marijuana) - SURGICAL HISTORY Hx Surgeries: No Meds Allergies/Adverse Reactions: Allergies Allergy/AdvReac Type Severity Reaction Status Date / Time No Known Allergies Allergy Verified 06/04/18 02:42 Physical Exam - Additional Findings Additional findings: - Constitutional Appears: Well, Non-toxic - Head Exam Head Exam: ATRAUMATIC, NORMAL INSPECTION, NORMOCEPHALIC - Eye Exam Eye Exam: EOMI, Normal appearance, PERRL Pupil Exam: NORMAL ACCOMODATION, PERRL - ENT Exam ENT Exam: Mucous Membranes dry - Neck Exam Neck exam: Positive for: Normal Inspection - Respiratory Exam Respiratory Exam: Clear to Auscultation Bilateral, NORMAL BREATHING PATTERN - Cardiovascular Exam Cardiovascular Exam: REGULAR RHYTHM - GI/Abdominal Exam GI & Abdominal Exam: Normal Bowel Sounds, Soft. absent: Tenderness - Extremities Exam Extremities exam: Positive for: normal capillary refill, normal inspection. Negative for: calf tenderness - Back Exam Back exam: CVA tenderness (R), NORMAL INSPECTION. absent: CVA tenderness (L) - Neurological Exam Neurological exam: Alert, CN II-XII Intact, Normal Gait, Oriented x3, Reflexes Normal - Psychiatric Exam Psychiatric exam: Normal Affect, Normal Mood - Skin Skin Exam: Dry, Intact, Normal Color, Warm Results - Vital Signs Recent Vital Signs: Last Vital Signs Temp 97.8 F 06/06/18 03:26 Pulse 69 06/06/18 03:26 Resp 18 06/06/18 03:26 BP 131/91 H 06/06/18 03:26 Pulse Ox 100 06/06/18 03:26 - Labs Result Diagrams: 06/06/18 05:05 06/06/18 04:26 Assessment & Plan - Assessment and Plan (Free Text) Assessment: 38 y/o male with PMH of nephrolithiasis presents to the ED with recurrent right flank pain x1 day. He is admitted for obstructive right ureteric stone 4.[address] A/P. Afebrile, no leukocytosis. Plan: Obstructive ureteric stone: -CT A/P 06/04: 4.7 mm right ureteric stone at level of L5 per prelim read given to ER physician -IVF NS 2L bolus given. continue maintenance @200 cc/hr -hypokalemia/hypomagnesemia in the setting of intractable vomiting. lytes repleted. repeat lab -dilaudid prn for severe pain -zofran prn -protonix -UA: +RBC, blood -UCx negative on 06/04 admission -continue flomax -urology consulted, Dr Sultana h/o smoking: -nicotine patch PPX: DVT: SCD GI: protonix NPO Case reviewed and plan discussed with attending Dr Jovita Chaves, PGY1 <Hailey Hussein - Last Filed: 06/06/18 06:08> Results - Vital Signs Recent Vital Signs: Last Vital Signs Temp 97.8 F 06/06/18 03:26 Pulse 79 06/06/18 05:06 Resp 18 06/06/18 05:06 BP 126/78 06/06/18 05:06 Pulse Ox 97 06/06/18 05:06 - Labs Result Diagrams: 06/06/18 05:05 06/06/18 04:26 Labs: Laboratory Results - last 24 hr 06/06/18 06/06/18 06/06/18 04:00 04:00 04:00 WBC 8.1 D RBC 3.54 Hgb 10.1 L D Hct 30.2 L MCV 85.3 MCH 28.5 MCHC 33.4 RDW 13.4 Plt Count 209 MPV 9.8 Neut % (Auto) Lymph % (Auto) [place] % (Auto) Eos % (Auto) Baso % (Auto) Lymph # (Auto) [place] # (Auto) Eos # (Auto) Baso # (Auto) Absolute Neuts (auto) Sodium 143 Potassium 2.2 L* D Chloride 118 H Carbon Dioxide 21 Anion Gap 6 L BUN 8 Creatinine 0.4 L Est GFR ( Amer) > 60 Est GFR (Non-Af Amer) > 60 Random Glucose 66 L Calcium 5.4 L* Phosphorus Magnesium Total Bilirubin 0.2 AST 14 L D ALT 16 Alkaline Phosphatase 48 Total Protein 4.0 L Albumin 2.1 L Globulin 1.9 Albumin/Globulin Ratio 1.1 Urine Color Yellow Urine Appearance Sl cloudy Urine pH >=9.0 Ur Specific [place] 1.015 Urine Protein Trace H Urine Glucose (UA) Negative Urine Ketones Negative Urine Blood Large H Urine Nitrate Negative Urine Bilirubin Negative Urine Urobilinogen 0.2 Ur Leukocyte Esterase Negative Urine RBC 10 - 15 H Urine WBC 0 - 2 Ur Epithelial Cells 0 - 2 Amorphous Sediment Moderate Urine Bacteria None 06/06/18 06/06/18 04:26 05:05 WBC 9.0 RBC 4.42 Hgb 12.5 L D Hct 37.7 L MCV 85.3 MCH 28.3 MCHC 33.2 RDW 13.4 Plt Count 234 MPV 9.6 Neut % (Auto) 66.5 Lymph % (Auto) 23.7 [place] % (Auto) 8.2 H Eos % (Auto) 1.4 L Baso % (Auto) 0.2 Lymph # (Auto) 2.1 [place] # (Auto) 0.7 H Eos # (Auto) 0.1 Baso # (Auto) 0.02 Absolute Neuts (auto) 6.01 Sodium 140 Potassium 3.3 L Chloride 103 Carbon Dioxide 31 Anion Gap 9 L BUN 11 Creatinine 0.6 L Est GFR ( Amer) > 60 Est GFR (Non-Af Amer) > 60 Random Glucose 99 Calcium 8.6 Phosphorus 3.6 Magnesium 1.6 L Total Bilirubin 0.3 AST 22 ALT 21 Alkaline Phosphatase 75 Total Protein 6.1 Albumin 3.5 Globulin 2.5 Albumin/Globulin Ratio 1.4 Urine Color Urine Appearance Urine pH Ur Specific [place] Urine Protein Urine Glucose (UA) Urine Ketones Urine Blood Urine Nitrate Urine Bilirubin Urine Urobilinogen Ur Leukocyte Esterase Urine RBC Urine WBC Ur Epithelial Cells Amorphous Sediment Urine Bacteria Attending/Attestation - Attestation I have personally seen and examined this patient.: Yes I have fully participated in the care of the patient.: Yes I have reviewed all pertinent clinical information: Yes Notes (Text): 06/06/18 06:08 Patient was seen when he was in bed # 6 in the ER. Medical record was reviewed. Agree with history, physical examination, assessment and plan.
[2018-06-06 04:59] LABS: URINE AMORPHOUS SEDIMENT MODERATE /hpf; URINE EPITHELIAL CELLS 0 - 2 /hpf (0-5); URINE WBC 0 - 2 /hpf (0-6)
[2018-06-06 05:13] LABS: BASO # 0.02 K/mm3 (0.0-2.0); BASO % 0.2 % (0.0-3.0); EOS # 0.1 (0.0-0.7); EOS % 1.4 % (1.5-5.0); LYMPH # 2.1 (1.2-3.4); LYMPH % 23.7 % (22.0-35.0); MEAN CELL VOLUME 85.3 fl (80.0-105.0); MEAN CORPUSCULAR HEMOGLOBIN 28.3 pg (25.0-35.0); MEAN CORPUSCULAR HGB CONC 33.2 g/dl (31.0-37.0); MEAN PLATELET VOLUME 9.6 fl (7.0-11.0); MONO # 0.7 (0.1-0.6); MONO % 8.2 % (1.0-6.0); RBC 4.42 10^6/uL (3.5-6.1); RED CELL DISTRIBUTION WIDTH 13.4 % (11.5-14.5)
[2018-06-06] MEDS ORDERED: Sodium Chloride 0.9% 100 ML IV SCH (05:15)
[2018-06-06] MEDS ORDERED: Sodium Chloride 0.9% 1,000 ML IV SCH ×2 (05:18→06:00)
[2018-06-06] MEDS ORDERED: Potassium Chloride 40 mEq/30 ml LIQ UD PO STA (05:35)
[2018-06-06 05:42] LABS: ALB/GLOB RATIO 1.4 (1.1-1.8); ALBUMIN 3.5 g/dL (3.0-4.8); ALT/SGPT 21 U/L (7-56); AST/SGOT 22 U/L (17-59); BLOOD UREA NITROGEN 11 mg/dL (7-21); CALCIUM 8.6 mg/dL (8.4-10.5); GFR NON-AFRICAN AMERICAN > 60
[2018-06-06 05:43] LABS: HEMOGLOBIN 12.5 g/dL (14.0-18.0)
[2018-06-06] MEDS ORDERED: Magnesium Sulfate 2 gm/50 ml 2 GM/50 ML BAG IVPB ONE ×2 (05:47→08:22)
[2018-06-06] MEDS: HYDROmorphone 0.5 mg/0.5 ml ISec IVP PRN ×4 (06:53→23:24)
[2018-06-06] MEDS: Sodium Chloride 0.9% 1,000 ML IV SCH (09:28)
[2018-06-06] MEDS ORDERED: Gentamicin 80 mg in 0.9% NS 0 MG/0 ML BAG IVPB ONE (11:17)
[2018-06-06] MEDS ORDERED: Iohexol 240 (50 ml) ONE (11:17)
[2018-06-06] MEDS ORDERED: Lidocaine 2% Jelly (Uro-Jet) ONE (11:17)
[2018-06-06] MEDS ORDERED: cefTRIAXone (Rocephin) 1 gm Inj ONE (11:17)
[2018-06-06] MEDS ORDERED: Midazolam 2 MG/2 ML VIAL ONE (11:30)
[2018-06-06] MEDS ORDERED: Propofol 10 mg/ml Inj (20 ML) ONE (11:30)
[2018-06-06] MEDS ORDERED: Lidocaine 1% Inj (20ml) ONE (11:31)
[2018-06-06] MEDS ORDERED: HYDROmorphone 0.5 mg/0.5 ml ISec IVP PRN (12:58)
--- NOTE | 2018-06-06 13:09 | RAD ---
Date of service: 06/06/2018 PROCEDURE: Retrograde pyelogram HISTORY: R/O OBSTRUCTION COMPARISON: TECHNIQUE: 39.0 sec of fluoro time. Cumulative dose 0.17 mGy meter squared. Eighteen images submitted FINDINGS: The study shows placement of a right ureteral stent IMPRESSION: As above
[2018-06-06] MEDS ORDERED: HYDROmorphone 0.5 mg/0.5 ml ISec ONE (14:13)
--- NOTE | 2018-06-06 14:42 | CARD ---
APPROVED REPORT Date of service: 06/06/2018 EKG Measurement Heart [id number] <Conclusion> Normal sinus rhythm Normal ECG
--- NOTE | 2018-06-06 14:44 | CARD ---
APPROVED REPORT Date of service: 06/06/2018 EKG Measurement Heart [id number] [place] [id number] <Conclusion> Sinus rhythm with Sinus Arrythmia.
--- NOTE | 2018-06-06 16:57 | OP ---
PROCEDURE DATE: 06/06/2018 PREOPERATIVE DIAGNOSIS: Right ureteral calculus. POSTOPERATIVE DIAGNOSIS: Right ureteral calculus. PROCEDURES: Cystoscopy, right retrograde pyelogram, right ureteroscopy, laser lithotripsy of right ureteral calculi and placement of a right ureteral stent. ATTENDING SURGEON: Shar Sultana MD ANESTHESIA: General. SPECIMENS: There were none. DRAINS: 6 x 26 right ureteral stent. COMPLICATIONS: There were none. OPERATIVE FINDINGS: After informed consent was obtained, the patient was taken to the operating room, placed on the operating table. Anesthesia was administered. The patient was then placed in the dorsal lithotomy position and prepped in the usual sterile fashion. The patient received IV antibiotics prior to start of the procedure. A 21-[place] cystoscope was passed into patient's urethra and advanced proximally under direct vision until the bladder was entered. A full survey inspection of bladder was then performed which revealed no stones, tumors or foreign bodies of the bladder. Both ureteral orifices were visualized and appeared within normal limits. At this point, a 5-[place] catheter was introduced through the cystoscope and guided into the right ureteral orifice. When inside the orifice, contrast was then instilled into the system. There were multiple mobile filling defects noted in the mid and upper ureter, unclear whether they were calculi or air bubbles however, one or two of the defects did appear suspicious for calculi. At this point, a sensor wire was obtained. The sensor wire was passed through the open-ended ureteral catheter and advanced up the ureter under fluoroscopic guidance until it coiled in the upper collecting system. At this point, the open-ended ureteral catheter was removed, the bladder was drained, the cystoscope was removed while leaving the guidewire in place. A 7.5 [place] semi-rigid ureteroscope was then obtained, it was passed under direct vision into the bladder and guided into the right ureteral orifice. It was advanced up the right ureter without difficulty until the lower portion of the upper ureter. In this area two yellowish jagged stones were encountered. At this point a holmium laser fiber was obtained. It was passed through the ureteroscope and under direct vision, the stones were able to be fragmented easily into very small pieces. The scope was then advanced beyond this point up to the level of the renal pelvis. There were no other large stones noted. At this point the scope was withdrawn under direct vision. There was some moderate edema of the ureter where the stone had been resting, there were multiple tiny pieces of calculus noted in the ureter, none of which appeared larger than 1 mm in size. At this point, the ureteroscope was withdrawn under vision and removed from the field. The cystoscope was then re-passed while backloading the guidewire and given the ureteral edema, decision was made to place a stent. A 6 x 26 stent was obtained. It was passed over the wire through the cystoscope and into the right ureter. The stent was advanced proximally under direct and fluoroscopic guidance until it was in the proper position. When the stent was then placed, the guidewire was removed. A coil was seen in the renal pelvis on fluoroscopy. A coil was seen in the bladder on cystoscopy. At this point, the procedure was completed, the bladder was drained. The cystoscope was removed. The string was left on the stent, exiting from the patient's urethral meatus. Plan will be to remove the stent next week on Saturday or Saturday in my office. The patient will call to make an appointment. Shar Sultana MD
[2018-06-06 17:37] VITALS: RESP 20
[2018-06-07] MEDS: HYDROmorphone 0.5 mg/0.5 ml ISec IVP PRN ×2 (03:30→08:18)
--- NOTE | 2018-06-07 07:13 | CP.PCM.DIS ---
<Khushboo Mathews - Last Filed: 06/07/18 15:19> Provider - Provider Date of Admission: 06/06/18 04:19 Attending physician: Angelina Swartz MD Primary care physician: None Consults: 06/06/18 04:59 Physician Consult Routine Comment: Consulting Provider: Shar Sultana Consulting Physician: Shar Sultana Reason for Consult: right obstructive ureteric stone Time Spent in preparation of Discharge (in minutes): 45 Hospital Course - Lab Results Lab Results: Most Recent Lab Values WBC 9.0 10^3/uL (4.5-11.0) 06/06/18 05:05 RBC 4.42 10^6/uL (3.5-6.1) 06/06/18 05:05 Hgb 12.5 g/dL (14.0-18.0) L D 06/06/18 05:05 Hct 37.7 % (42.0-52.0) L 06/06/18 05:05 MCV 85.3 fl (80.0-105.0) 06/06/18 05:05 MCH 28.3 pg (25.0-35.0) 06/06/18 05:05 MCHC 33.2 g/dl (31.0-37.0) 06/06/18 05:05 RDW 13.4 % (11.5-14.5) 06/06/18 05:05 Plt Count 234 10^3/uL (120.0-450.0) 06/06/18 05:05 MPV 9.6 fl (7.0-11.0) 06/06/18 05:05 Neut % (Auto) 66.5 % (50.0-68.0) 06/06/18 05:05 Lymph % (Auto) 23.7 % (22.0-35.0) 06/06/18 05:05 [place] % (Auto) 8.2 % (1.0-6.0) H 06/06/18 05:05 Eos % (Auto) 1.4 % (1.5-5.0) L 06/06/18 05:05 Baso % (Auto) 0.2 % (0.0-3.0) 06/06/18 05:05 Lymph # (Auto) 2.1 (1.2-3.4) 06/06/18 05:05 [place] # (Auto) 0.7 (0.1-0.6) H 06/06/18 05:05 Eos # (Auto) 0.1 (0.0-0.7) 06/06/18 05:05 Baso # (Auto) 0.02 K/mm3 (0.0-2.0) 06/06/18 05:05 Absolute Neuts (auto) 6.01 (1.4-6.5) 06/06/18 05:05 Sodium 140 mmol/L (132-148) 06/06/18 04:26 Potassium 3.9 mmol/L (3.6-5.0) 06/06/18 10:00 Chloride 103 mmol/L (98-107) 06/06/18 04:26 Carbon Dioxide 31 mmol/L (21-33) 06/06/18 04:26 Anion Gap 9 (10-20) L 06/06/18 04:26 BUN 11 mg/dL (7-21) 06/06/18 04:26 Creatinine 0.6 mg/dl (0.8-1.5) L 06/06/18 04:26 Est GFR ( Amer) > 60 06/06/18 04:26 Est GFR (Non-Af Amer) > 60 06/06/18 04:26 Random Glucose 99 mg/dL (70-110) 06/06/18 04:26 Calcium 8.6 mg/dL (8.4-10.5) 06/06/18 04:26 Phosphorus 3.6 mg/dL (2.5-4.5) 06/06/18 04:26 Magnesium 1.6 mg/dL (1.7-2.2) L 06/06/18 04:26 Total Bilirubin 0.3 mg/dL (0.2-1.3) 06/06/18 04:26 AST 22 U/L (17-59) 06/06/18 04:26 ALT 21 U/L (7-56) 06/06/18 04:26 Alkaline Phosphatase 75 U/L (38-126) 06/06/18 04:26 Total Protein 6.1 g/dL (5.8-8.3) 06/06/18 04:26 Albumin 3.5 g/dL (3.0-4.8) 06/06/18 04: Globulin 2.5 gm/dL 06/06/18 04:26 Albumin/Globulin Ratio 1.4 (1.1-1.8) 06/06/18 04:26 Urine Color Yellow (YELLOW) 06/06/18 04:00 Urine Appearance Sl cloudy (CLEAR) 06/06/18 04:00 Urine pH >=9.0 (4.7-8.0) 06/06/18 04:00 Ur Specific Mccormick 1.015 (1.005-1.035) 06/06/18 04:00 Urine Protein Trace mg/dL (<30 mg/dL) H 06/06/18 04:00 Urine Glucose (UA) Negative mg/dL (NEGATIVE) 06/06/18 04:00 Urine Ketones Negative mg/dL (NEGATIVE) 06/06/18 04:00 Urine Blood Large (NEGATIVE) H 06/06/18 04:00 Urine Nitrate Negative (NEGATIVE) 06/06/18 04:00 Urine Bilirubin Negative (NEGATIVE) 06/06/18 04:00 Urine Urobilinogen 0.2 E.U./dL (<1 E.U./dL) 06/06/18 04:00 Ur Leukocyte Esterase Negative [place]/uL (NEGATIVE) 06/06/18 04:00 Urine RBC 10 - 15 /hpf (0-2) H 06/06/18 04:00 Urine WBC 0 - 2 /hpf (0-6) 06/06/18 04:00 Ur Epithelial Cells 0 - 2 /hpf (0-5) 06/06/18 04:00 Amorphous Sediment Moderate /hpf (NONE) 06/06/18 04:00 Urine Bacteria None /hpf (NONE) 06/06/18 04:00 - Hospital Course Hospital Course: Upon Admission 38yo male PMHx nephrolithiasis presented to ED with recurrent right flank pain today. Pain is sharp, 10/10, no radiation, progressive, associated with nausea, NBNB vomting, poor oral intake, poor urine output. Patient denied fever, chills, hematuria or trauma related to his symptoms. Patient was recently admitted to [facility] on 06/04/18 for same symptoms and was discharged home with percocet to follow up with urologist Dr Sultana but he did not call the doctor's office yet. He stated he had significant history of nephrolithiasis with subsequent ureteric stent placed 7 years ago. Patient denied chest pain, palpitations, cough, headache, dizziness, change in bowel movement. Hospital Course Patient was admitted for obstructive right ureteric stone 4.[address] A/P. Urology Dr. Sultana was consulted. Patient was started on IVF and electrolytes were repleted. Patient was given Dilaudid for severe pain and Zofran for nausea. UA showed +RBC and blood and Urine cx was negative on admission. Flomax was continued. Patient was kept NPO overnight. The next day patient was taken to OR by urology and had R ureteroscopy with laser lithotripsy and insertion of R ureteral stent. Patient tolerated procedure well. Patient's pain was controlled with dilaudid however during the day patient endorsed he takes heroin and last use was the Saturday prior to admission. Patient admitted to using 8 bags of heroin. As patient was part of a methadone program earlier in the year, his program in [facility] was reached out to. Dr. Torres confirmed patient's admission at methadone program. Thus patient was given 1 dose of 20mg methadone during hospital stay. Patient clinically improved and his pain was controlled with PO medication. Patient symptomatically improved and on day of discharge was deemed medically optimized for discharge. Upon Discharge - Please follow up at the [facility] clinic for his appointment on Friday 06/09 at 3 pm to be established with a primary care doctor. - Please call Dr. Sultana's office to schedule a follow up appointment to have the urological stent removed within 2-3 days. - You are being discharged on the new medication: Flomax 0.4mg 1 tab daily Disp#14 - Please take OTC Motrin for pain - Take medications as prescribed and resume home medications as indicated on discharge instructions - Please follow up with your Methadone clinic and abstain from any alcohol or illicit drug use. - Please return to ED if symptoms return Instructions discussed in detail with patient who voiced understanding and agreement with discharge plan. Discharge Exam - Head Exam Head Exam: ATRAUMATIC, NORMAL INSPECTION, NORMOCEPHALIC - Eye Exam Eye Exam: EOMI, Normal appearance, PERRL. absent: Conjunctival injection, Scleral icterus Pupil Exam: NORMAL ACCOMODATION - ENT Exam ENT Exam: Mucous Membranes Moist - Neck Exam Neck exam: Full Rom - Respiratory Exam Respiratory Exam: Clear to PA & Lateral, NORMAL BREATHING PATTERN, UNREMARKABLE. absent: Accessory Muscle Use, Rales, Rhonchi, Wheezes - Cardiovascular Exam Cardiovascular Exam: REGULAR RHYTHM, +S1, +S2 - GI/Abdominal Exam GI & Abdominal Exam: Normal Bowel Sounds, Soft. absent: Firm, Guarding, Rigid, Tenderness - Extremities Exam Extremities exam: normal capillary refill, normal inspection, pedal pulses present - Neurological Exam Neurological exam: Alert, CN II-XII Intact, Oriented x3 - Psychiatric Exam Psychiatric exam: Normal Affect, Normal Mood - Skin Skin Exam: Dry, Intact, Normal Color, Warm Discharge Plan - Discharge Medications Prescriptions: Tamsulosin [Flomax] 0.4 mg PO DAILY #14 cap - Follow Up Plan Condition: STABLE Disposition: HOME/ ROUTINE Instructions: Quitting Smoking for Older Adults, Smoking: Not Just Harmful to Your Lungs and Heart, Kidney Stones (DC), Renal Colic (DC), Flank Pain (DC), Drug Abuse and Drug Addiction (DC), Marijuana Use and Addiction (DC), Laser Lithotripsy for Kidney Stones (DC), How to Strain Your Urine Additional Instructions: - Please follow up at the [facility] for his appointment on Friday 06/09 at 3 pm to be established with a primary care doctor. - Please call Dr. Sultana's office to schedule a follow up appointment to have the urological stent removed within 2-3 days. - You are being discharged on the new medication: Flomax 0.4mg 1 tab daily Disp#14 - Please take OTC Motrin for pain - Take medications as prescribed and resume home medications as indicated on discharge instructions - Please follow up with your Methadone clinic and abstain from any alcohol or illicit drug use. - Please return to ED if symptoms return Referrals: Shar Sultana MD [Staff Provider] - Anna Marie Cartagena MD [Medical Doctor] - <Angelina Swartz - Last Filed: 06/07/18 17:14> Provider - Provider Date of Admission: 06/06/18 04:19 Attending physician: Angelina Swartz MD Consults: 06/06/18 04:59 Physician Consult Routine Comment: Consulting Provider: Shar Sultana Consulting Physician: Shar Sultana Reason for Consult: right obstructive ureteric stone Hospital Course - Lab Results Lab Results: Most Recent Lab Values WBC 8.1 10^3/uL (4.5-11.0) 06/07/18 07:00 RBC 4.64 10^6/uL (3.5-6.1) 06/07/18 07:00 Hgb 13.4 g/dL (14.0-18.0) L 06/07/18 07:00 Hct 39.7 % (42.0-52.0) L 06/07/18 07:00 MCV 85.6 fl (80.0-105.0) 06/07/18 07:00 MCH 28.9 pg (25.0-35.0) 06/07/18 07:00 MCHC 33.8 g/dl (31.0-37.0) 06/07/18 07:00 RDW 13.4 % (11.5-14.5) 06/07/18 07:00 Plt Count 258 10^3/uL (120.0-450.0) 06/07/18 07:00 MPV 10.1 fl (7.0-11.0) 06/07/18 07:00 Neut % (Auto) 65.4 % (50.0-68.0) 06/07/18 07:00 Lymph % (Auto) 23.0 % (22.0-35.0) 06/07/18 07:00 [place] % (Auto) 9.3 % (1.0-6.0) H 06/07/18 07:00 Eos % (Auto) 2.1 % (1.5-5.0) 06/07/18 07:00 Baso % (Auto) 0.2 % (0.0-3.0) 06/07/18 07:00 Lymph # (Auto) 1.9 (1.2-3.4) 06/07/18 07:00 [place] # (Auto) 0.8 (0.1-0.6) H 06/07/18 07:00 Eos # (Auto) 0.2 (0.0-0.7) 06/07/18 07:00 Baso # (Auto) 0.02 K/mm3 (0.0-2.0) 06/07/18 07:00 Absolute Neuts (auto) 5.28 (1.4-6.5) 06/07/18 07:00 Sodium 140 mmol/L (132-148) 06/07/18 07:00 Potassium 3.8 mmol/L (3.6-5.0) 06/07/18 07:00 Chloride 105 mmol/L (98-107) 06/07/18 07:00 Carbon Dioxide 29 mmol/L (21-33) 06/07/18 07:00 Anion Gap 10 (10-20) 06/07/18 07:00 BUN 6 mg/dL (7-21) L 06/07/18 07:00 Creatinine 0.7 mg/dl (0.8-1.5) L 06/07/18 07:00 Est GFR ( Amer) > 60 06/07/18 07:00 Est GFR (Non-Af Amer) > 60 06/07/18 07:00 Random Glucose 103 mg/dL (70-110) 06/07/18 07:00 Calcium 9.2 mg/dL (8.4-10.5) 06/07/18 07:00 Phosphorus 3.6 mg/dL (2.5-4.5) 06/06/18 04:26 Magnesium 1.6 mg/dL (1.7-2.2) L 06/06/18 04:26 Total Bilirubin 0.4 mg/dL (0.2-1.3) 06/07/18 07:00 AST 21 U/L (17-59) 06/07/18 07:00 ALT 21 U/L (7-56) 06/07/18 07:00 Alkaline Phosphatase 81 U/L (38-126) 06/07/18 07:00 Total Protein 6.4 g/dL (5.8-8.3) 06/07/18 07:00 Albumin 3.7 g/dL (3.0-4.8) 06/07/18 07:00 Globulin 2.7 gm/dL 06/07/18 07:00 Albumin/Globulin Ratio 1.4 (1.1-1.8) 06/07/18 07:00 Urine Color Yellow (YELLOW) 06/06/18 04:00 Urine Appearance Sl cloudy (CLEAR) 06/06/18 04:00 Urine pH >=9.0 (4.7-8.0) 06/06/18 04:00 Ur Specific [place] 1.015 (1.005-1.035) 06/06/18 04:00 Urine Protein Trace mg/dL (<30 mg/dL) H 06/06/18 04:00 Urine Glucose (UA) Negative mg/dL (NEGATIVE) 06/06/18 04:00 Urine Ketones Negative mg/dL (NEGATIVE) 06/06/18 04:00 Urine Blood Large (NEGATIVE) H 06/06/18 04:00 Urine Nitrate Negative (NEGATIVE) 06/06/18 04:00 Urine Bilirubin Negative (NEGATIVE) 06/06/18 04:00 Urine Urobilinogen 0.2 E.U./dL (<1 E.U./dL) 06/06/18 04:00 Ur Leukocyte Esterase Negative [place]/uL (NEGATIVE) 06/06/18 04:00 Urine RBC 10 - 15 /hpf (0-2) H 06/06/18 04:00 Urine WBC 0 - 2 /hpf (0-6) 06/06/18 04:00 Ur Epithelial Cells 0 - 2 /hpf (0-5) 06/06/18 04:00 Amorphous Sediment Moderate /hpf (NONE) 06/06/18 04:00 Urine Bacteria None /hpf (NONE) 06/06/18 04:00 Urine Opiates Screen Positive (NEGATIVE) H 06/07/18 12:05 Urine Methadone Screen Negative (NEGATIVE) 06/07/18 12:05 Ur Barbiturates Screen Negative (NEGATIVE) 06/07/18 12:05 Ur Phencyclidine Scrn Negative (NEGATIVE) 06/07/18 12:05 Ur Amphetamines Screen Negative (NEGATIVE) 06/07/18 12:05 U Benzodiazepines Scrn Negative (NEGATIVE) 06/07/18 12:05 U Oth Cocaine Metabols Negative (NEGATIVE) 06/07/18 12:05 U Cannabinoids Screen Negative (NEGATIVE) 06/07/18 12:05 Attending/Attestation - Attestation I have personally seen and examined this patient.: Yes I have fully participated in the care of the patient.: Yes I have reviewed all pertinent clinical information, including history, physical exam and plan: Yes Notes (Text): 06/07/18 17:06 38 year old male with past medical history of nephrolithiasis who presented with intractable nausea and vomiting. He was recently discharged with recommendation to follow up with urology for cystoscopy for right kidney stone. However he failed to comply and presented with intractable nausea/vomiting. Also had hypokalemia which was repleted. He was seen by urology and underwent cystoscopy with stent placement yesterday. Today he admitted to history of substance (heroin) abuse. Also reports he used to be on methadone. He denied history of substance abuse initially. He was given methadone for withdrawal symptoms which improved. He is discharged home to follow up at [facility]. Follow up with urology. Continue with flomax. Counselled on risks of continued substance abuse. Follow up with Methadone clinic. Angelina Swartz MD Hospitalist.
[2018-06-07 07:30] LABS: BASO # 0.02 K/mm3 (0.0-2.0); BASO % 0.2 % (0.0-3.0); EOS # 0.2 (0.0-0.7); EOS % 2.1 % (1.5-5.0); HEMOGLOBIN 13.4 g/dL (14.0-18.0); LYMPH # 1.9 (1.2-3.4); MEAN CELL VOLUME 85.6 fl (80.0-105.0); MEAN CORPUSCULAR HEMOGLOBIN 28.9 pg (25.0-35.0); MEAN CORPUSCULAR HGB CONC 33.8 g/dl (31.0-37.0); MEAN PLATELET VOLUME 10.1 fl (7.0-11.0); MONO # 0.8 (0.1-0.6); MONO % 9.3 % (1.0-6.0); RBC 4.64 10^6/uL (3.5-6.1); RED CELL DISTRIBUTION WIDTH 13.4 % (11.5-14.5); WHITE BLOOD COUNT 8.1 10^3/uL (4.5-11.0)
[2018-06-07 07:45] LABS: ALB/GLOB RATIO 1.4 (1.1-1.8); ALBUMIN 3.7 g/dL (3.0-4.8); ALT/SGPT 21 U/L (7-56); AST/SGOT 21 U/L (17-59); BLOOD UREA NITROGEN 6 mg/dL (7-21); CALCIUM 9.2 mg/dL (8.4-10.5); GFR NON-AFRICAN AMERICAN > 60
[2018-06-07 08:41] VITALS: BP 126/83; PULSE 67; TEMP 98.4; O2SAT 98
[2018-06-07] MEDS: Sodium Chloride 0.9% 1,000 ML IV SCH (10:40)
[2018-06-07] MEDS ORDERED: Oxycodone/Acetaminophen 5/325 mg Tab PO PRN (10:44)
[2018-06-07 13:11] LABS: BARBITURATES, UR NEGATIVE (NEGATIVE); BENZODIAZEPINES, UR NEGATIVE (NEGATIVE); OPIATES, UR POSITIVE (NEGATIVE); PHENCYCLIDINE, UR NEGATIVE (NEGATIVE)
== END 2018-06-07 17:10 | disposition home or self-care (01) ==
LOC: ED 03:17 → ERH 04:19 → 3RSO 06:11
PROVIDERS: ADMIT Hospitalist; ATTEND Internal Medicine
DX: N20.2 Calculus of kidney with calculus of ureter (principal); E87.6 Hypokalemia; E83.42 Hypomagnesemia; F17.210 Nicotine dependence, cigarettes, uncomplicated; Z80.9 Family history of malignant neoplasm, unspecified; Z82.49 Family history of ischemic heart disease and other diseases of the circulatory system; Z87.442 Personal history of urinary calculi
CPT/HCPCS: 36415; 52356; 74420; 80053; 80324; 80345; 80346; 80349; 80353; 80358; 80361; 81001; 83735; 83992; 84100; 84132; 85025; 85027; 93005; 96374; 96375; 96376; 99284; C1758; C1769; C2625; C9113; G0378; J0696; J1170; J2250; J2270; J2405; J2704; J3010; J3480; J7030; Q9966